=== PATIENT | male | born 1980 | race Caucasian/White ===

== ENCOUNTER 2019-08-15 01:57 | Emergency (ER) | payer MEDICAID ==
[~2019-08-15] VITALS: Ht 188 cm; Wt 113.4 kg
[2019-08-15 02:39] VITALS: BP 126/84
== END 2019-08-15 03:21 | disposition home or self-care (01) ==
LOC: ER 02:01
DX: J01.90 Acute sinusitis, unspecified (principal); H65.93 Unspecified nonsuppurative otitis media, bilateral

== ENCOUNTER 2022-10-14 11:46 | Emergency (ER) | payer MEDICAID ==
[~2022-10-14] VITALS: Ht 188 cm; Wt 113.6 kg
[2022-10-14 13:38] VITALS: BP 123/78
[2022-10-14] MEDS ORDERED: KETOROLAC TROMETH 60MG/2ML VIAL IM ONE (14:00)
[2022-10-14] MEDS ORDERED: METH750T22 PO (14:33)
[2022-10-14] MEDS ORDERED: IBUP800T27 PO (14:33)
== END 2022-10-14 14:39 | disposition home or self-care (01) ==
LOC: ER 11:46
DX: S39.012A Strain of muscle, fascia and tendon of lower back, initial encounter (principal); X50.1XXA Overexertion from prolonged static or awkward postures, initial encounter; Y93.89 Activity, other specified; Y92.89 Other specified places as the place of occurrence of the external cause; Y99.8 Other external cause status
CPT/HCPCS: 72100; 96372; 99283; J1885

== ENCOUNTER 2023-08-01 16:53 | Emergency (ER) | payer MEDICAID ==
[~2023-08-01] VITALS: Ht 188 cm; Wt 120.2 kg
[~2023-08-01 16:53] MED LIST: IBUP-1456 PO; METH-1182 PO
[2023-08-01 18:34] VITALS: BP 135/88; PULSE 96; RESP 18; TEMP 99.1; O2SAT 93
[2023-08-01] MEDS ORDERED: IBUPROFEN 800 MG TAB PO ONE (21:30)
== END 2023-08-01 22:15 | disposition home or self-care (01) ==
LOC: ER 16:53
DX: R60.0 Localized edema (principal); K21.9 Gastro-esophageal reflux disease without esophagitis
CPT/HCPCS: 83880; 93971

== ENCOUNTER 2024-03-05 12:14 | Emergency (ER) | payer MEDICAID ==
[~2024-03-05] VITALS: Ht 188 cm; Wt 113.0 kg
[2024-03-05] MEDS: TETANUS-DIPTH-ACEL PERTUSSIS 0.5ML SYR Tdap IM ONE (16:15)
[2024-03-05 16:20] VITALS: BP 145/70; PULSE 100; RESP 16; O2SAT 96
[2024-03-05] MEDS ORDERED: IBUP-1455 PO (16:33)
[2024-03-05] MEDS: IBUPROFEN 800 MG TAB PO ONE (16:44)
== END 2024-03-05 16:48 | disposition home or self-care (01) ==
LOC: ER 12:14
DX: S61.412A Laceration without foreign body of left hand, initial encounter (principal); K21.9 Gastro-esophageal reflux disease without esophagitis; Y04.2XXA Assault by strike against or bumped into by another person, initial encounter; Y93.89 Activity, other specified; Y92.524 Gas station as the place of occurrence of the external cause; Y99.8 Other external cause status
CPT/HCPCS: 12002; 73130; 90471; 90715